=== PATIENT | male | born 1935 | race Caucasian/White ===

== ENCOUNTER 2017-10-17 00:11 | Inpatient (IN) | payer MEDICARE, BC ==
[~2017-10-17] VITALS: Ht 175.3 cm; Wt 101.1 kg
[2017-10-17] VITALS (40 sets, daily range): BP systolic 75–121; BP diastolic 36–96; Ht 175.3 cm; Wt 101.1 kg
--- NOTE | ~2017-10-17 | CN ---
PATIENT NAME:ESTHER DALE MEDICAL RECORD: [id number] : 35 LOCATION:. D.2137 ADMIT DATE: 10/17/17 ACCOUNT: [id number] CONSULTING PHYSICIAN: SHAMAR ALEJANDRO MD REFERRING PHYSICIAN: KARIE KIM MD DATE OF CONSULTATION: 10/17/2017 HISTORY OF PRESENT ILLNESS: Mr. Dale is an 82-year-old male admitted to the ICU. He apparently underwent an I&D of something on the right face a couple days ago as an outpatient and is back in with that. He had a CT of the facial bones as well when he came in. 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 He is alert, oriented. He is able to talk, give a good history, and answer questions. He is on mask O2. He is in no distress. NOSE: No masses, polyps, or drainage. ORAL CAVITY AND OROPHARYNX: He has got upper and lower denture plates. He has no trismus at all. No soreness opening and closing his mouth. I can examine his palate, pharynx, palpate the parapharyngeal areas on both sides, Chris's duct, all of that appears normal. His mucous membranes are dry. NECK: He has no masses, no adenopathy. He has this I&D site on the right posterior cheek really right over the parotid gland in the espinal portion of his face. There is no purulent drainage from there. It is tender to push right on that area at the I&D site, but there is no obvious cellulitis. There is no erythema. The skin is not really thickened. It just looks a little full like maybe mild parotitis, but there are really no overt cellulitis changes. The neck has no masses or adenopathy. DIAGNOSTIC DATA: On his CT, it is a CT of the facial bones not a CT of the neck, so it is hard to evaluate the parotid fully, but I do not see anything particularly remarkable about it. There is fat stranding consistent with cellulitis around the I&D site, which just is right over the parotid gland as well, but there is no abscess. IMPRESSION: He has an I&D site on the right cheek, hard to say what was there, when that was done, but there is no abscess there now and no significant drainage. He has got some minimal cellulitis around it by CT, but his physical exam is not very impressive. His white blood count is only 10. There is no evidence of a dental infection, he does not have any teeth. He does not have any trismus or indication of inflammation of the masseter muscle on exam to palpation or symptomatically. He is just tender over the I&D site. There is some minimal cellulitis. I would not expect it to make him that sick though. He may have another source of infection. This should be something that would respond to IV antibiotics to cover mostly Gram-positive staph, strep, mostly the same kind of things because of parotitis if that was the source or skin infection, although it appears to have been a skin infection based on the fact that it was I&D'd, but I did not see it before that. He is on vancomycin now and hydration, which seems appropriate. TRANSINT:[id number] Voice Confirmation ID: [id number] DOCUMENT ID: [id number] CONSULT REPORT [id number] ESTHER DALE, SHAMAR NAYAK at 1044 CC: [id number] DICTATION DATE: 10/17/17 1128 CQ DEVELOPER: 10/17/17 1156 DIS IN 10/20/17 [id number] [place] [address]
--- NOTE | ~2017-10-17 | EC ---
PATIENT:ESTHER RICHARDSON DATE OF SERVICE: 10/17/17 SEX: M MEDICAL RECORD: [id number] DATE OF : 35 LOCATION:D.M2 D.213 AGE OF PATIENT: 82 ADMISSION DATE: 10/17/17 REFERRING PHYSICIAN: INTERPRETING PHYSICIAN: MULU VILLANUEVA MD ECHOCARDIOGRAM REPORT ECHO CHARGES 4 ECHO COMPLETE CLINICAL DIAGNOSIS: ELEVATED TROPONIN HX OF ICD CAD CABG STENTS ECHOCARDIOGRAPHIC MEASUREMENTS (adult normal given) AC root (d.<3.7cm) 4.3 cm LV Septum d (<1.2 cm> 1.4 cm Valve Excursion 2.1 cm LV Septum (systole) 1.5 cm Left Atria (s.<4.0cm> 3.6 cm LVPW d(<1.2cm) 1.5 cm RV (d.<2.3cm) 3.8 cm LVPW (sytole) 1.7 cm LV diastole(<5.6CM) 4.8 cm MV E-F(>70mm/sec) cm LV systole 3.0 cm LVOT Diameter 2.1 cm MV exc.(>10mm) 1.6 cm Est.ejection fraction (50-75%) % Pericardial Effusion N DOPPLER: LVIT cm/sec A 98.0 cm/sec E 80.0 cm/sec LA cm/sec RVSP 28 mmHg LVOT 85 cm/sec AOP1/2T m/s Asc. Ao 121 cm/sec RVOT 65 cm/sec RA cm/sec PA 109 cm/sec AV Gradient Peak 5.90 mmHg AV Mean 2.65 mmHg AV Area 2.5 cm MV Gradient Peak 7.64 mmHg MV Mean 2.44 mmHg MV Area cm COMMENTS: Injector Assembler: Bo DONIS Cert Occupational Therapy Asst: 1 Dr. Villanueva TAPE# PACS DATE OF SERVICE: 10/18/2017 PROCEDURE: Echocardiogram. FINDINGS: 1. Left ventricular chamber size is within normal limits. Left ventricular systolic function is normal. Overall ejection fraction estimated at 55%. 2. Left atrium, right atrium, and right ventricular chamber sizes are within normal limits. 3. Valvular structures have normal structure and motion. ECHOCARDIOGRAM REPORT [id number] ESTHER RICHARDSON 4. Doppler interrogation reveals mild tricuspid regurgitation, no other valvular insufficiency or stenosis. Pulmonary systolic pressure is estimated 28 mmHg. 5. No evidence of pericardial effusion or left ventricular thrombus. TRANSINT:[id number] Voice Confirmation ID: [id number] DOCUMENT ID: [id number] MULU VILLANUEVA MD at 1202 CC: [id number] DICTATION DATE: 10/18/17 122 MOLDING MACHINE SETTER: 10/18/17 1227 DIS IN 10/20/17 [id number] [place] [address]
--- NOTE | ~2017-10-17 | CN ---
PATIENT NAME:ESTHER RICHARDSON MEDICAL RECORD: [id number] : 35 LOCATION:D. D.2137 ADMIT DATE: 10/17/17 ACCOUNT: [id number] CONSULTING PHYSICIAN: MULU KAISER MD REFERRING PHYSICIAN: KARIE KIM MD DATE OF CONSULTATION: 10/18/2017 Cardiology Consultation DIAGNOSES: 1. Septic shock. 2. Cellulitis. 3. Non-Q-wave myocardial infarction. 4. Coronary artery disease. 5. Previous coronary artery bypass graft surgery. 6. Cardiomyopathy. 7. Defibrillator -- pacemaker. HISTORY OF PRESENT ILLNESS: This is a gentleman with extensive cardiac history with past history of coronary artery bypass graft surgery in 1998, a defibrillator pacemaker followed by Dr. Urban at [facility]. He presents with cellulitis on his right buttocks, cheek. This was felt to be initially from an ingrown hair. He had a lancing procedure, presents with an extensive cellulitis, septic shock, and his troponin is elevated at 4. His EKG is with nonspecific ST-T abnormalities. He is currently pain free. He remains hypotensive on Dopamine. PHYSICAL EXAMINATION: GENERAL APPEARANCE: Well-nourished, well-developed, appears stated age. Level of distress, comfortable. PSYCHIATRIC: Mental status, alert, normal affect. Orientation, oriented to time, place and person. EYES: Lids and conjunctiva, noninjected. No discharge, no pallor. ENT: Lips, teeth, gums, normal dentition. Oropharynx, no cyanosis, no pallor. NECK: Carotid arteries, bilateral normal upstroke, no bruits, no thrills. JUGULAR VEINS: No jugular venous pressure or distention. CERVICAL LYMPH NODES: Nontender, nonenlarged. THYROID: Not enlarged. Nontender. No nodules. LUNGS: Respiratory effort, unlabored. CHEST: Normal curvature. No thoracic deformity. No chest wall tenderness. Percussion, resonant. Auscultation, clear. No wheezes, no rales, no rhonchi. CARDIOVASCULAR: Precordial exam, nondisplaced. No heaves or pericardial thrills. Rate and rhythm, regular. Heart sounds, normal S1, normal S2. No S3, no gallop, no rub. Systolic murmur, not heard. Diastolic murmur, not heard. EXTREMITIES: No cyanosis, no edema. Peripheral pulses, full and equal in all extremities, except as noted. No bruits appreciated. ABDOMEN: Soft, nondistended. Normal aorta. No bruit. Nontender. No masses. Liver, nontender, no hepatomegaly. Spleen, nontender, no splenomegaly. MUSCULOSKELETAL: No joint tenderness. No joint swelling. No erythema. NEUROLOGICAL: Normal gait, normal strength, normal tone. SKIN: Warm and dry. OVERALL IMPRESSION: Non-Q-wave myocardial infarction in a patient with a past history of coronary artery disease, coronary bypass graft surgery in the distant past. Most likely, he has recurrent hemodynamically significant coronary artery CONSULT REPORT [id number] ESTHER RICHARDSON disease and/or graft failure. At this time, we will hold off on cardiac catheterization until he improves from the standpoint of the septic shock. We will proceed with cardiac catheterization prior to discharge from this hospitalization though. TRANSINT:[id number] Voice Confirmation ID: [id number] DOCUMENT ID: [id number] MULU KAISER MD at 1202 CC: [id number] DICTATION DATE: 10/18/17 0839 APPAREL PATTERN MAKER: 10/18/17 0952 DIS IN 10/20/17 [facility] [address] [place] [address]
[~2017-10-17 00:11] MED LIST: ASPIRIN 81 MG E81 MG PO; BUMEX 1 MG TAB1 MG PO; COREG6.25 MG PO; CRESTOR40 MG PO; DIABETA5 MG PO; FISH OIL 1,0001 CA1 PO; GABAPENTIN100 MG PO; GLUCOPHAGE500 MG PO; GLYBURIDE5 M1 PO; LANTUS SOL100 UNIT/1 SQ; LISINOPRIL5 MG PO; LITE COAT ASPI325 MG PO; MUCINEX600 MG PO; MULTIPLE VITAMI1 TA1 PO; NIASPAN500 MG PO; NITROSTAT0.4 MG SL; NORCO 10/325 TA1 TA1; NORCO 10/325 TA1 TA1 PO; PLAVIX75 MG PO; ZANTAC150 MG PO; ZESTRIL10 MG PO
[2017-10-17 01:04] LABS: BASOPHILS 0 % (0-2); EOSINOPHILS 0.4 % (0-7); HEMATOCRIT 39.2 % (42.0-54.0); HEMOGLOBIN 12.8 g/dL (13.5-17.5); IMMATURE GRANULOCYTES 0.2 % (0-5); LYMPHOCYTES 2.5 % (15-50); MCH 28.6 pg (26.0-34.0); MCHC 32.7 g/dL (31.0-37.0); MCV 87.5 fL (80.0-100.0); MEAN PLATELET VOLUME 9.8 fL (7.4-10.4); MONOCYTES 3.4 % (2-11); NEUTROPHILS 93.5 % (40-80); PLATELET COUNT 151 10x3/uL (130-400); RBC 4.48 10x6/uL (4.20-6.10); RDW 13.6 % (11.5-14.5); WBC 9.3 10x3/uL (4.8-10.8)
[2017-10-17 01:19] LABS: ALBUMIN 3.7 g/dL (3.4-5.0); ANION GAP 14.8 mmol/L (8-16); BILIRUBIN - TOTAL 0.71 mg/dL (0.2-1.3); CARBON DIOXIDE 22.3 mmol/L (21.0-32.0); CREATININE - SERUM 1.6 mg/dL (0.6-1.3); POTASSIUM - SERUM 5.1 mmol/L (3.5-5.1); PROTEIN - SERUM 7.5 g/dL (6.4-8.2)
[2017-10-17 02:01] LABS: APPEARANCE CLEAR (CLEAR); COLOR YELLOW (YELLOW); GLUCOSE NEGATIVE (NEGATIVE); KETONE SMALL mg/dL (NEGATIVE); NITRITE NEGATIVE (NEGATIVE); PROTEIN NEGATIVE (NEGATIVE)
[2017-10-17 02:02] LABS: BILIRUBIN NEGATIVE (NEGATIVE); UROBILINOGEN NORMAL (NORMAL)
[2017-10-17 06:31] LABS: CKMB 1.8 U/L (0.0-3.6); CREATINE KINASE 80 UL (21-232)
[2017-10-17 06:35] LABS: BASOPHILS 0 % (0-2); EOSINOPHILS 0.5 % (0-7); IMMATURE GRANULOCYTES 0.2 % (0-5); LYMPHOCYTES 1.8 % (15-50); MCH 27.6 pg (26.0-34.0); MCHC 31.4 g/dL (31.0-37.0); MCV 87.9 fL (80.0-100.0); MEAN PLATELET VOLUME 10.2 fL (7.4-10.4); MONOCYTES 5.6 % (2-11); NEUTROPHILS 91.9 % (40-80); PLATELET COUNT 146 10x3/uL (130-400); RBC 3.98 10x6/uL (4.20-6.10); RDW 13.6 % (11.5-14.5)
[2017-10-17 06:41] LABS: TROPONIN-I 0.304 ng/mL (0.000-0.060)
[2017-10-17 06:50] LABS: ANION GAP 17.8 mmol/L (8-16); CARBON DIOXIDE 19.7 mmol/L (21.0-32.0); MAGNESIUM - SERUM 1.3 mg/dL (1.8-2.4)
[2017-10-17 06:52] LABS: CREATININE - SERUM 2.1 mg/dL (0.6-1.3)
[2017-10-17 06:54] LABS: POTASSIUM - SERUM 6.5 mmol/L (3.5-5.1)
[2017-10-17 13:58] LABS: CKMB 7.4 U/L (0.0-3.6)
[2017-10-17 13:59] LABS: CREATINE KINASE 412 UL (21-232); TROPONIN-I 1.495 ng/mL (0.000-0.060)
[2017-10-17 20:02] LABS: CKMB 10.1 U/L (0.0-3.6)
[2017-10-17 20:05] LABS: CREATINE KINASE 610 UL (21-232)
[2017-10-17 20:06] LABS: TROPONIN-I 4.055 ng/mL (0.000-0.060)
[2017-10-18] VITALS (37 sets, daily range): BP systolic 81–133; BP diastolic 46–86
[2017-10-18 05:02] LABS: BASOPHILS 0 % (0-2); EOSINOPHILS 1.8 % (0-7); HEMATOCRIT 30.7 % (42.0-54.0); HEMOGLOBIN 9.9 g/dL (13.5-17.5); IMMATURE GRANULOCYTES 0.4 % (0-5); MCH 27.7 pg (26.0-34.0); MCHC 32.2 g/dL (31.0-37.0); MEAN PLATELET VOLUME 9.8 fL (7.4-10.4); MONOCYTES 6.7 % (2-11); NEUTROPHILS 87.1 % (40-80); RBC 3.58 10x6/uL (4.20-6.10); RDW 13.6 % (11.5-14.5); WBC 10.7 10x3/uL (4.8-10.8)
[2017-10-18 05:05] LABS: MCV 85.8 fL (80.0-100.0); PLATELET COUNT 114 10x3/uL (130-400)
[2017-10-18 05:11] LABS: ANION GAP 13.7 mmol/L (8-16); CALCIUM 7.1 mg/dL (8.5-10.1); CARBON DIOXIDE 24.2 mmol/L (21.0-32.0); CREATININE - SERUM 2.5 mg/dL (0.6-1.3)
[2017-10-18 05:16] LABS: POTASSIUM - SERUM 4.9 mmol/L (3.5-5.1)
[2017-10-19] VITALS: BP 118/69
[2017-10-19 05:23] VITALS: BP 116/58
[2017-10-19 07:33] LABS: BASOPHILS 0 % (0-2); EOSINOPHILS 6.2 % (0-7); HEMATOCRIT 31.7 % (42.0-54.0); HEMOGLOBIN 10.1 g/dL (13.5-17.5); IMMATURE GRANULOCYTES 0.3 % (0-5); MCH 27.2 pg (26.0-34.0); MCHC 31.9 g/dL (31.0-37.0); MCV 85.4 fL (80.0-100.0); MEAN PLATELET VOLUME 9.9 fL (7.4-10.4); NEUTROPHILS 79.5 % (40-80); PLATELET COUNT 101 10x3/uL (130-400); RBC 3.71 10x6/uL (4.20-6.10); RDW 13.6 % (11.5-14.5); WBC 8.7 10x3/uL (4.8-10.8)
[2017-10-19 07:41] LABS: CALCIUM 7.3 mg/dL (8.5-10.1); CARBON DIOXIDE 22.3 mmol/L (21.0-32.0); POTASSIUM - SERUM 4.3 mmol/L (3.5-5.1)
[2017-10-19 07:44] LABS: CREATININE - SERUM 1.8 mg/dL (0.6-1.3)
[2017-10-19 07:54] VITALS: BP 138/72
[2017-10-19 11:42] VITALS: BP 126/74
[2017-10-19 16:20] VITALS: BP 133/78
[2017-10-19 19:00] VITALS: BP 131/76
[2017-10-20 04:00] VITALS: BP 148/68
[2017-10-20 06:43] LABS: BASOPHILS 0.1 % (0-2); HEMATOCRIT 31.2 % (42.0-54.0); HEMOGLOBIN 10.2 g/dL (13.5-17.5); IMMATURE GRANULOCYTES 0.1 % (0-5); LYMPHOCYTES 16.3 % (15-50); MCH 27.8 pg (26.0-34.0); MCHC 32.7 g/dL (31.0-37.0); MONOCYTES 7.3 % (2-11); NEUTROPHILS 70.2 % (40-80); PLATELET COUNT 113 10x3/uL (130-400); RBC 3.67 10x6/uL (4.20-6.10); RDW 13.4 % (11.5-14.5); WBC 6.9 10x3/uL (4.8-10.8)
[2017-10-20 06:55] LABS: ANION GAP 13.2 mmol/L (8-16); CALCIUM 8.4 mg/dL (8.5-10.1); CARBON DIOXIDE 23.9 mmol/L (21.0-32.0); CREATININE - SERUM 1.5 mg/dL (0.6-1.3); MAGNESIUM - SERUM 1.3 mg/dL (1.8-2.4); POTASSIUM - SERUM 4.1 mmol/L (3.5-5.1); VANCOMYCIN - RANDOM 9.5 ug/mL (10.0-20.0)
[2017-10-20 09:23] VITALS: BP 138/62
[2017-10-20] MEDS ORDERED: DOXYCYCLINE HY100 M2 PO (10:14)
[2017-10-20] MEDS ORDERED: PLAVIX75 MG PO (10:16)
[2017-10-20] MEDS ORDERED: CRESTOR10 MG PO (10:16)
[2017-10-20 11:30] VITALS: BP 133/71
[2017-10-20 17:47] VITALS: BP 124/72
== END 2017-10-20 18:27 | DRG 871 ==
LOC: D.ER 00:11 → D.EDHOLD 02:57 → D.ICU 02:57 → D.M2 02:57 → D.EDHOLD 06:54 → D.ICU 08:41 → D.M2 10-18 23:01 → D.SDCHOLD 10-19 14:06 → D.M2 10-19 14:06
PROVIDERS: Family Medicine; Internal Medicine Nephrology
PROC: 02HV33Z Insertion of Infusion Device into Superior Vena Cava, Percutaneous Approach (ICD-10-PCS; principal; 2017-10-18)
PROC: B548ZZA Ultrasonography of Superior Vena Cava, Guidance (ICD-10-PCS; 2017-10-18)
DX: A41.9 Sepsis, unspecified organism (principal); R65.21 Severe sepsis with septic shock; I21.4 Non-ST elevation (NSTEMI) myocardial infarction; L03.211 Cellulitis of face; N17.9 Acute kidney failure, unspecified; I42.9 Cardiomyopathy, unspecified; M60.9 Myositis, unspecified; I25.10 Atherosclerotic heart disease of native coronary artery without angina pectoris; E87.5 Hyperkalemia; Z95.810 Presence of automatic (implantable) cardiac defibrillator; E83.42 Hypomagnesemia; E11.40 Type 2 diabetes mellitus with diabetic neuropathy, unspecified; E86.0 Dehydration; Z95.1 Presence of aortocoronary bypass graft

== ENCOUNTER 2017-10-20 16:37 | Inpatient (IN) | payer MEDICARE, BC ==
[~2017-10-20] VITALS: Ht 175.3 cm; Wt 95.3 kg
--- NOTE | ~2017-10-20 | DS ---
PATIENT:ESTHER RICHARDSON :35 MEDICAL RECORD: [id number] DISCHARGE SUMMARY ADMISSION DATE: 10/20/17 DISCHARGE DATE: 10/27/17 This is a discharge dated 10/27/2017 from inpatient rehabilitation. 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 SECONDARY DIAGNOSES: 1. Right facial cellulitis. 2. Non-Q-wave myocardial infarction. 3. Coronary artery disease. 4. Hyperkalemia. 5. Hypomagnesemia. 6. Diabetes. 7. Neuropathy. 8. History of pacemaker placement. 9. Hypertension. 10. Hyperlipidemia. 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 HOSPITAL COURSE: Full H&P is located elsewhere on the chart on this 82-year-old male who was admitted to inpatient rehab for physical therapy and occupational therapy to improve gait, transfer skills, bed mobility, and activities of daily living to a modified independent level. He was evaluated by PT and OT and their plans of care were followed. He required detention care for observation and assessment and medication administration. He was on doxycycline for right facial cellulitis and was started on Nystatin for a possible thrush. Electrolytes were managed by protocol. Fingerstick blood sugars were monitored throughout his hospital stay with appropriate adjustment in medications as needed. He was cooperative with therapies, progressing towards goals. Case management was involved for discharge planning. He was considered stable for discharge on 10/27/2017. DISCHARGE MEDICATIONS: As per discharge medication reconciliation. DISCHARGE DISPOSITION: The patient is discharged home. He will continue his current diet and level of activity. He will have home health for continued detention, PT and OT. He will be followed by [facility]. He will follow up with primary care and specialist as directed. At least 30 minutes was spent in this discharge activity. TRANSINT:[id number] Voice Confirmation ID: [id number] DOCUMENT ID: [id number] Dictated By: JOSE GRIMM I have interviewed/examined the above patient and agree with these documented findings. DISCHARGE SUMMARY REPORT [id number] ESTHER RICHARDSON SCOTT MD at 1157 at 0940 CC: [id number] DICTATION DATE: 12/10/17 1259 RADIOGRAPHER TECHNOLOGIST: 12/11/17 0957 DIS IN 10/27/17 [facility] [address] [place] [address]
[~2017-10-20 16:37] MED LIST changes: +CRESTOR10 MG PO; +DOXYCYCLINE HY100 M2 PO
[2017-10-20 22:09] VITALS: BP 144/68; BMI 31.0
[2017-10-21 06:12] LABS: BASOPHILS 0.1 % (0-2); EOSINOPHILS 3.2 % (0-7); HEMATOCRIT 32.6 % (42.0-54.0); HEMOGLOBIN 10.7 g/dL (13.5-17.5); IMMATURE GRANULOCYTES 0.3 % (0-5); LYMPHOCYTES 22.7 % (15-50); MCH 27.8 pg (26.0-34.0); MCHC 32.8 g/dL (31.0-37.0); MCV 84.7 fL (80.0-100.0); MEAN PLATELET VOLUME 9.5 fL (7.4-10.4); NEUTROPHILS 65.7 % (40-80); PLATELET COUNT 116 10x3/uL (130-400); RBC 3.85 10x6/uL (4.20-6.10); RDW 13.7 % (11.5-14.5); WBC 7.4 10x3/uL (4.8-10.8)
[2017-10-21 06:29] LABS: ANION GAP 14.1 mmol/L (8-16); CALCIUM 8.5 mg/dL (8.5-10.1); CREATININE - SERUM 1.3 mg/dL (0.6-1.3); POTASSIUM - SERUM 4.1 mmol/L (3.5-5.1)
[2017-10-21 08:55] VITALS: BP 134/73
[2017-10-21 13:20] VITALS: Ht 175.3 cm; Wt 95.3 kg
[2017-10-21 19:25] VITALS: BP 115/60
[2017-10-22 09:36] VITALS: BP 130/70
[2017-10-22 19:10] VITALS: BP 120/55
[2017-10-23 06:53] LABS: BASOPHILS 0.1 % (0-2); HEMATOCRIT 31.7 % (42.0-54.0); HEMOGLOBIN 10.6 g/dL (13.5-17.5); IMMATURE GRANULOCYTES 0.5 % (0-5); LYMPHOCYTES 15.4 % (15-50); MCHC 33.4 g/dL (31.0-37.0); MCV 83.9 fL (80.0-100.0); MEAN PLATELET VOLUME 9.6 fL (7.4-10.4); MONOCYTES 8.9 % (2-11); NEUTROPHILS 73.1 % (40-80); RBC 3.78 10x6/uL (4.20-6.10); RDW 13.6 % (11.5-14.5); WBC 11.8 10x3/uL (4.8-10.8)
[2017-10-23 07:01] LABS: PLATELET COUNT 147 10x3/uL (130-400)
[2017-10-23 07:15] LABS: ANION GAP 11.4 mmol/L (8-16); CALCIUM 8.9 mg/dL (8.5-10.1); CARBON DIOXIDE 27.2 mmol/L (21.0-32.0); CREATININE - SERUM 1.2 mg/dL (0.6-1.3); POTASSIUM - SERUM 3.6 mmol/L (3.5-5.1)
[2017-10-23 07:52] VITALS: BP 131/69
[2017-10-23 15:51] VITALS: BP 144/76
[2017-10-23 22:04] VITALS: BP 140/68
[2017-10-24 16:14] VITALS: BP 118/63
[2017-10-24 18:52] VITALS: BP 104/49
[2017-10-25 07:39] LABS: BASOPHILS 0.3 % (0-2); EOSINOPHILS 1.4 % (0-7); HEMOGLOBIN 10.6 g/dL (13.5-17.5); IMMATURE GRANULOCYTES 0.9 % (0-5); LYMPHOCYTES 17.7 % (15-50); MCH 27.3 pg (26.0-34.0); MCHC 32.1 g/dL (31.0-37.0); MCV 85.1 fL (80.0-100.0); MEAN PLATELET VOLUME 9.2 fL (7.4-10.4); NEUTROPHILS 68.7 % (40-80); RBC 3.88 10x6/uL (4.20-6.10); RDW 13.8 % (11.5-14.5); WBC 7.9 10x3/uL (4.8-10.8)
[2017-10-25 07:42] LABS: PLATELET COUNT 197 10x3/uL (130-400)
[2017-10-25 07:47] LABS: ANION GAP 12.6 mmol/L (8-16); CALCIUM 8.6 mg/dL (8.5-10.1); CARBON DIOXIDE 26.8 mmol/L (21.0-32.0); CREATININE - SERUM 1.3 mg/dL (0.6-1.3); POTASSIUM - SERUM 3.4 mmol/L (3.5-5.1)
[2017-10-25 08:09] VITALS: BP 92/50
[2017-10-25 20:19] VITALS: BP 107/50
[2017-10-26 07:46] VITALS: BP 108/56
[2017-10-26] MEDS ORDERED: MELATONIN 3 MG1 TAB PO (18:39)
[2017-10-26] MEDS ORDERED: GABAPENTIN100 MG PO (18:39)
[2017-10-26 20:06] VITALS: BP 116/49
[2017-10-27 08:04] VITALS: BP 119/64
== END 2017-10-27 10:51 | disposition short-term general hospital (02) | DRG 91 ==
LOC: D.REHAB 16:37
PROVIDERS: Emergency Medicine; Family Medicine
DX: G72.89 Other specified myopathies (principal); A41.9 Sepsis, unspecified organism; R65.21 Severe sepsis with septic shock; I21.4 Non-ST elevation (NSTEMI) myocardial infarction; J90 Pleural effusion, not elsewhere classified; L03.211 Cellulitis of face; N17.9 Acute kidney failure, unspecified; I42.9 Cardiomyopathy, unspecified; E11.65 Type 2 diabetes mellitus with hyperglycemia; I25.10 Atherosclerotic heart disease of native coronary artery without angina pectoris; Z95.1 Presence of aortocoronary bypass graft; D64.9 Anemia, unspecified; E87.5 Hyperkalemia; E83.42 Hypomagnesemia

== ENCOUNTER 2017-10-27 20:29 | Inpatient (IN) | payer MEDICARE, BC ==
[~2017-10-27] VITALS: Ht 175.3 cm; Wt 96.5 kg
--- NOTE | ~2017-10-27 | EC ---
PATIENT:ESTHER RICHARDSON DATE OF SERVICE: 10/27/17 SEX: M MEDICAL RECORD: [id number] DATE OF : 35 LOCATION:D.MS Olsen AGE OF PATIENT: 82 ADMISSION DATE: 10/27/17 REFERRING PHYSICIAN: INTERPRETING PHYSICIAN: EMILY CALLES MD ECHOCARDIOGRAM REPORT ECHO CHARGES 5 ECHO LIMITED Date: 1 DOPPLER ECHO COLOR FLOW 2 DOPPLER ECHO PULSE CLINICAL DIAGNOSIS: ELEVATED CARDIAC ENZYMES ECHOCARDIOGRAPHIC MEASUREMENTS (adult normal given) AC root (d.<3.7cm) 0 cm LV Septum d (<1.2 cm> 0 cm Valve Excursion 0 cm LV Septum (systole) 0 cm Left Atria (s.<4.0cm> 0 cm LVPW d(<1.2cm) 0 cm RV (d.<2.3cm) 0 cm LVPW (sytole) 0 cm LV diastole(<5.6CM) 0 cm MV E-F(>70mm/sec) 0 cm LV systole 0 cm LVOT Diameter 0 cm MV exc.(>10mm) 0 cm Est.ejection fraction (50-75%) 0 % DOPPLER: LVIT 0 cm/sec A 0 cm/sec E 0 cm/sec LA 0 cm/sec RVSP 21.3 mmHg LVOT 0 cm/sec AOP1/2T 0 m/s Asc. Ao 0 cm/sec RVOT 0 cm/sec RA 0 cm/sec PA 0 cm/sec AV Gradient Peak 0 mmHg AV Mean 0 mmHg AV Area 0 cm MV Gradient Peak 0 mmHg MV Mean 0 mmHg MV Area 0 cm COMMENTS: LIMITED STUDY (2-D,COLOR,DOPPLER) COMPLETE ECHO DONE ON 10/18/17 Snow Blower: 1 J LUIS BLOUNT Regional Trainer: 4 Dr. Calles TAPE# PACS Pericardial Effusion N DATE OF SERVICE: PROCEDURE: Limited echocardiogram with 2D color and Doppler to determine any change in function. FINDINGS: The left ventricle was difficult to visualize. There appears to be anterior septal hypokinesis with posterior and inferior hyperkinetic segments. Overall ejection fraction is reduced to 45% to 50%. This was a difficult to visualize study. Contrast enhancement may have been helpful. There are no gross valvular changes. ECHOCARDIOGRAM REPORT [id number] ESTHER RICHARDSON CONCLUSIONS: The patient has mild reduction in LV systolic function. Ejection fraction 45% to 50%. TRANSINT:[id number] Voice Confirmation ID: [id number] DOCUMENT ID: [id number] EMILY CALLES MD at 1426 CC: [id number] DICTATION DATE: 11/14/17 0946 API PRODUCT MANAGER: 11/14/17 1252 DIS IN 11/04/17 [id number] [place] [address]
--- NOTE | ~2017-10-27 | OP ---
PATIENT NAME: ESTHER RICHARDSON MEDICAL RECORD: [id number] :35 LOCATION:D.MS [id number] ADMISSION DATE:10/27/17 SURGEON: JAMEEL PHILLIPS MD DATE OF OPERATION: 10/28/2017 PREOPERATIVE DIAGNOSES: 1. Need of IV access for CVPs. 2. Urinary tract infection with septicemia. 3. Elevated liver function tests. POSTOPERATIVE DIAGNOSES: 1. Need of IV access for CVPs. 2. Urinary tract infection with septicemia. 3. Elevated liver function tests. PROCEDURE: Insertion of right internal jugular triple lumen central venous catheter. SURGEON: Jameel Phillips MD LIQUID CHLORINE OPERATOR: None. BLOOD LOSS: Minimal. ANESTHESIA: Local. COMPLICATIONS: None. The risks, possible complications and alternatives to the procedure were explained to the patient. He elects to proceed. The entire procedure was performed with the presence of a nurse. OPERATIVE COURSE: The patient was seen in his ICU bed. He was positioned in the Trendelenburg position. The right neck was sterilely prepped and draped. Local anesthetic was used to infiltrate the skin and subcutaneous tissues at the base of the right neck. Under ultrasonographic guidance, I percutaneously accessed the right internal jugular vein. A guidewire passed easily. A small skin mariel was accomplished. A vessel dilator was used to dilate the subcutaneous tract. A 16-cm triple lumen central venous catheter was inserted to the hub. It was sutured in place times 3. All lumens flushed easily and aspirated dark, nonpulsatile blood. A stat portable chest x-ray is pending. TRANSINT:[id number] Voice Confirmation ID: [id number] DOCUMENT ID: [id number] OPERATIVE REPORT [id number] ESTHER RICHARDSON ROBERT MD at 1042 CC: [id number] DICTATION DATE: 10/28/17 1459 BOOM PUMP OPERATOR: 10/28/17 1521 [place] [address]
--- NOTE | ~2017-10-27 | CN ---
PATIENT NAME:ESTHER DALE MEDICAL RECORD: [id number] : 35 LOCATION:D.MS Olsen5 ADMIT DATE: 10/27/17 ACCOUNT: [id number] CONSULTING PHYSICIAN: TOMÁS BELLO MD REFERRING PHYSICIAN: MARK WILLIS MD DATE OF CONSULTATION: 10/29/2017 CONSULT REQUESTING PHYSICIAN: Mark Willis MD REASON FOR CONSULTATION: Septic shock, leukocytosis, acute renal failure, elevated liver enzymes. HISTORY OF PRESENT ILLNESS: Mr. Dale is an 82-year-old gentleman who was admitted in the first week of October with sepsis and non-Q myocardial infarction. The patient was discharged from the rehab and yesterday, the patient has rigors, fever, and chills. The patient came back to the ER, found out that the patient has significant leukocytosis and the patient was hypotensive. Now, the patient is in the ICU. He is awake and alert. Denies any chest pain. No abdominal pain. There are no associated nausea or vomiting. He is just not feeling well. REVIEW OF SYSTEMS: Mainly in the history of present illness. PAST MEDICAL HISTORY: 1. Type 2 diabetes mellitus. 2. Hyperlipidemia. 3. History of septic shock and sepsis. 4. Coronary artery disease, status post non-Q myocardial infarction. 5. Cardiomyopathy. 6. History of melanoma, left ear removed, allergy and sinus allergic rhinitis. 7. Neuropathy in the feet. PAST SURGICAL HISTORY: 1. Status post CABG in 1998. 2. Status post defibrillator placement. 3. Status post pacemaker placement. 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 5. Cardiac catheterization and stent placement. 6. Left knee arthroscopic surgery. ALLERGIES: There are no known drug allergies. PRESENT MEDICATIONS: He is on Rocephin and Levaquin. PERSONAL AND SOCIAL HISTORY: The patient is a nonsmoker, nondrinker. FAMILY HISTORY: Significant for cardiovascular disease and diabetes. PHYSICAL EXAMINATION: GENERAL: Now, the patient is lying comfortably in bed. He is not in acute distress. VITAL SIGNS: The blood pressure is 89-118/61, pulse is 94 to 103, temperature 100.6, SPO2 is 96% on 2 liter nasal cannula. HEENT: Conjunctivae is pink, sclerae nonicteric. NECK: Supple. No JVD. CONSULT REPORT [id number] ESTHER DALE CHEST: There is no wheeze, no rales. HEART: Rhythm regular, normal sound, no murmur. ABDOMEN: Soft, bowel sounds present. No hepatosplenomegaly. RECTAL: Deferred. EXTREMITIES: No cyanosis, no clubbing. There is 1+ pedal edema. CENTRAL NERVOUS SYSTEM: The patient is awake and alert. There is no obvious cranial nerve abnormality. The patient follow commands. LABORATORY DATA: CBC: The WBC is 22.8, hemoglobin 11.2, hematocrit 35.4, the platelet count is 212. The neutrophils is 96%. Chemistry; sodium 140, potassium 4.3, chloride 105, bicarbonate is 20.7, BUN is 43, creatinine 2.6, AST 102, alkaline phosphatase 173. ProBNP is 951. Albumin is 2.3. IMPRESSION: 1. Systemic inflammatory response syndrome type of syndrome. A. Leukocytosis. B. Fever. C. Hypotension and septic shock. 2. Lactic acidosis. 3. Possible urinary tract infection. 4. Ndqds-ho-kvxpawl renal failure. 5. Leukocytosis. 6. Hepatitis. 7. Coronary artery disease. 8. Congestive heart failure, cardiomyopathy, status post defibrillator placement. He was seen by Dr. Villanueva in the past. RECOMMENDATION: 1. I will adjust the dose of Levaquin to renal function and discontinue the Rocephin and start cefepime and vancomycin to cover for Gram-negative rods as well as MRSA. 2. Continue Levophed IV to keep the systolic blood pressure above 90. 3. Get the central line, keep the CVP 10-12. 4. Nephrology consulted. 5. Check the cardiac enzymes, if elevated we will consult cardiology. 6. Supplemental oxygen is required. 7. Follow up labs and chest radiograph in the morning. Dr. Willis, thank you for involving me in the care of Mr. Dale. The critical care time is 45 minutes. TRANSINT:[id number] Voice Confirmation ID: [id number] DOCUMENT ID: [id number] TOMÁS BELLO MD at 1410 CC: [id number] DICTATION DATE: 10/28/17 1009 WELL DRILL OPERATOR ROTARY DRILL: 10/28/17 1106 DIS IN 11/04/17 [place] [address]
[~2017-10-27 20:29] MED LIST changes: +MELATONIN 3 MG1 TAB PO
[2017-10-27 21:48] LABS: BASOPHILS 0.1 % (0-2); EOSINOPHILS 0.2 % (0-7); HEMATOCRIT 35.7 % (42.0-54.0); HEMOGLOBIN 11.6 g/dL (13.5-17.5); IMMATURE GRANULOCYTES 0.6 % (0-5); LYMPHOCYTES 1.6 % (15-50); MCHC 32.5 g/dL (31.0-37.0); MCV 86.2 fL (80.0-100.0); MEAN PLATELET VOLUME 9.8 fL (7.4-10.4); MONOCYTES 0.8 % (2-11); NEUTROPHILS 96.7 % (40-80); PLATELET COUNT 209 10x3/uL (130-400); RBC 4.14 10x6/uL (4.20-6.10); RDW 13.9 % (11.5-14.5); WBC 13.2 10x3/uL (4.8-10.8)
[2017-10-27 21:55] LABS: APPEARANCE CLEAR (CLEAR); BACTERIA MODERATE /hpf (NONE SEEN); BILIRUBIN NEGATIVE (NEGATIVE); COLOR YELLOW (YELLOW); GLUCOSE NEGATIVE (NEGATIVE); KETONE NEGATIVE (NEGATIVE); NITRITE NEGATIVE (NEGATIVE); PROTEIN NEGATIVE (NEGATIVE); SPECIFIC GRAVITY 1.015 (1.005-1.020); UROBILINOGEN NORMAL (NORMAL)
[2017-10-27 21:57] LABS: ALBUMIN 2.7 g/dL (3.4-5.0); ANION GAP 20.7 mmol/L (8-16); BILIRUBIN - TOTAL 0.74 mg/dL (0.2-1.3); CALCIUM 8.3 mg/dL (8.5-10.1); CARBON DIOXIDE 20.6 mmol/L (21.0-32.0); POTASSIUM - SERUM 4.3 mmol/L (3.5-5.1); PROTEIN - SERUM 6.2 g/dL (6.4-8.2)
[2017-10-27 22:06] LABS: MAGNESIUM - SERUM 1.2 mg/dL (1.8-2.4)
[2017-10-28] VITALS (93 sets, daily range): BP systolic 73–168; BP diastolic 31–145; BMI 31.4
[2017-10-28 03:16] LABS: HEMATOCRIT 35.4 % (42.0-54.0); HEMOGLOBIN 11.2 g/dL (13.5-17.5); MCH 27.5 pg (26.0-34.0); MCHC 31.6 g/dL (31.0-37.0); MEAN PLATELET VOLUME 9.4 fL (7.4-10.4); PLATELET COUNT 212 10x3/uL (130-400); RBC 4.07 10x6/uL (4.20-6.10); WBC 22.8 10x3/uL (4.8-10.8)
[2017-10-28 03:39] LABS: ALBUMIN 2.3 g/dL (3.4-5.0); ANION GAP 18.6 mmol/L (8-16); BILIRUBIN - TOTAL 0.49 mg/dL (0.2-1.3); CARBON DIOXIDE 20.7 mmol/L (21.0-32.0); POTASSIUM - SERUM 4.3 mmol/L (3.5-5.1); PROTEIN - SERUM 5.8 g/dL (6.4-8.2)
[2017-10-28 03:41] LABS: EOSINOPHILS 1 % (0-7); LYMPHOCYTES 2 % (15-50); MONOCYTES 3 % (2-11); NEUTROPHILS 89 % (40-80); PLATELET ESTIMATE NORMAL
[2017-10-28 03:42] LABS: CREATININE - SERUM 2.6 mg/dL (0.6-1.3)
[2017-10-28 10:42] LABS: CREATINE KINASE 584 UL (21-232)
[2017-10-28 10:51] LABS: TROPONIN-I 0.169 ng/mL (0.000-0.060)
[2017-10-28 15:45] LABS: ERYTHROCYTE SEDIMENTATION RATE 31 mm/hr (0-20)
[2017-10-28 22:07] LABS: APPEARANCE CLEAR (CLEAR); BILIRUBIN NEGATIVE (NEGATIVE); COLOR YELLOW (YELLOW); GLUCOSE NEGATIVE (NEGATIVE); KETONE NEGATIVE (NEGATIVE); NITRITE NEGATIVE (NEGATIVE); PROTEIN TRACE mg/dL (NEGATIVE); UROBILINOGEN NORMAL (NORMAL)
[2017-10-28 22:08] LABS: CREATININE - URINE 87.3 mg/dL (30-125); PRO/CRE RATIO URINE 0.5 mg/g; PROTEIN - URINE 39.9 mg/dL (0.0-11.9)
[2017-10-28 22:09] LABS: BACTERIA FEW /hpf (NONE SEEN); RED CELLS - URINE 25-50 /hpf (0-5)
[2017-10-29] VITALS (96 sets, daily range): BP systolic 78–148; BP diastolic 33–105; Ht 175.3 cm; Wt 96.5 kg
[2017-10-29 03:37] LABS: BASOPHILS 0.1 % (0-2); EOSINOPHILS 2.2 % (0-7); HEMATOCRIT 31.7 % (42.0-54.0); HEMOGLOBIN 10.1 g/dL (13.5-17.5); IMMATURE GRANULOCYTES 0.4 % (0-5); LYMPHOCYTES 8.7 % (15-50); MCH 27.4 pg (26.0-34.0); MCHC 31.9 g/dL (31.0-37.0); MCV 86.1 fL (80.0-100.0); MEAN PLATELET VOLUME 10.1 fL (7.4-10.4); MONOCYTES 5.1 % (2-11); NEUTROPHILS 83.5 % (40-80); PLATELET COUNT 181 10x3/uL (130-400); RBC 3.68 10x6/uL (4.20-6.10); RDW 14.2 % (11.5-14.5); WBC 19.2 10x3/uL (4.8-10.8)
[2017-10-29 03:56] LABS: ALBUMIN 2.1 g/dL (3.4-5.0); ANION GAP 12.2 mmol/L (8-16); BILIRUBIN - TOTAL 0.76 mg/dL (0.2-1.3); CARBON DIOXIDE 23.4 mmol/L (21.0-32.0); CREATININE - SERUM 2.3 mg/dL (0.6-1.3); MAGNESIUM - SERUM 1.3 mg/dL (1.8-2.4); POTASSIUM - SERUM 4.6 mmol/L (3.5-5.1); PROTEIN - SERUM 5.1 g/dL (6.4-8.2); VANCOMYCIN - RANDOM 5.3 ug/mL (10.0-20.0)
[2017-10-30] VITALS (37 sets, daily range): BP systolic 85–136; BP diastolic 50–88
[2017-10-30 04:03] LABS: BASOPHILS 0.1 % (0-2); EOSINOPHILS 5.6 % (0-7); HEMATOCRIT 30.9 % (42.0-54.0); HEMOGLOBIN 9.9 g/dL (13.5-17.5); IMMATURE GRANULOCYTES 0.2 % (0-5); LYMPHOCYTES 19.5 % (15-50); MCH 27.2 pg (26.0-34.0); MCV 84.9 fL (80.0-100.0); MEAN PLATELET VOLUME 9.7 fL (7.4-10.4); MONOCYTES 6.2 % (2-11); NEUTROPHILS 68.4 % (40-80); PLATELET COUNT 170 10x3/uL (130-400); RBC 3.64 10x6/uL (4.20-6.10); RDW 14.1 % (11.5-14.5)
[2017-10-30 04:10] LABS: WBC 8.3 10x3/uL (4.8-10.8)
[2017-10-30 04:29] LABS: ALBUMIN 2.1 g/dL (3.4-5.0); ANION GAP 9.2 mmol/L (8-16); BILIRUBIN - TOTAL 0.71 mg/dL (0.2-1.3); CALCIUM 7.4 mg/dL (8.5-10.1); CARBON DIOXIDE 27.1 mmol/L (21.0-32.0); POTASSIUM - SERUM 4.3 mmol/L (3.5-5.1); PROTEIN - SERUM 5.4 g/dL (6.4-8.2); VANCOMYCIN - TROUGH 2.7 ug/mL (10.0-20.0)
[2017-10-30 04:40] LABS: CREATININE - SERUM 1.7 mg/dL (0.6-1.3); MAGNESIUM - SERUM 1.7 mg/dL (1.8-2.4)
[2017-10-31] VITALS (18 sets, daily range): BP systolic 90–145; BP diastolic 32–112
[2017-10-31 03:47] LABS: BASOPHILS 0.1 % (0-2); EOSINOPHILS 3.5 % (0-7); HEMATOCRIT 30.1 % (42.0-54.0); HEMOGLOBIN 9.8 g/dL (13.5-17.5); IMMATURE GRANULOCYTES 0.2 % (0-5); LYMPHOCYTES 16.5 % (15-50); MCH 27.5 pg (26.0-34.0); MCHC 32.6 g/dL (31.0-37.0); MCV 84.6 fL (80.0-100.0); MEAN PLATELET VOLUME 9.4 fL (7.4-10.4); MONOCYTES 5.6 % (2-11); NEUTROPHILS 74.1 % (40-80); PLATELET COUNT 159 10x3/uL (130-400); RBC 3.56 10x6/uL (4.20-6.10); RDW 13.9 % (11.5-14.5)
[2017-10-31 04:00] LABS: ALBUMIN 2.1 g/dL (3.4-5.0); ANION GAP 13.6 mmol/L (8-16); BILIRUBIN - TOTAL 0.57 mg/dL (0.2-1.3); CALCIUM 7.4 mg/dL (8.5-10.1); CARBON DIOXIDE 24.7 mmol/L (21.0-32.0); CREATININE - SERUM 1.2 mg/dL (0.6-1.3); MAGNESIUM - SERUM 1.9 mg/dL (1.8-2.4); POTASSIUM - SERUM 4.3 mmol/L (3.5-5.1); PROTEIN - SERUM 5.2 g/dL (6.4-8.2)
[2017-11-01 04:00] VITALS: BP 91/52
[2017-11-01 06:27] LABS: BASOPHILS 0.2 % (0-2); HEMATOCRIT 28.2 % (42.0-54.0); IMMATURE GRANULOCYTES 0.3 % (0-5); LYMPHOCYTES 26.8 % (15-50); MCH 27.1 pg (26.0-34.0); MCHC 31.9 g/dL (31.0-37.0); MCV 84.9 fL (80.0-100.0); MEAN PLATELET VOLUME 9.9 fL (7.4-10.4); NEUTROPHILS 61.7 % (40-80); PLATELET COUNT 156 10x3/uL (130-400); RBC 3.32 10x6/uL (4.20-6.10); RDW 13.9 % (11.5-14.5); WBC 6.3 10x3/uL (4.8-10.8)
[2017-11-01 06:46] LABS: ANION GAP 13.1 mmol/L (8-16); BILIRUBIN - TOTAL 0.69 mg/dL (0.2-1.3); CALCIUM 7.5 mg/dL (8.5-10.1); CARBON DIOXIDE 24.3 mmol/L (21.0-32.0); CREATININE - SERUM 1.1 mg/dL (0.6-1.3); MAGNESIUM - SERUM 1.5 mg/dL (1.8-2.4); POTASSIUM - SERUM 4.4 mmol/L (3.5-5.1)
[2017-11-01 07:25] LABS: SPE - ALBUMIN 2.6 g/dL (2.9-4.4); SPE - ALPHA-1 GLOBULIN 0.2 g/dL (0.0-0.4); SPE - ALPHA-2 GLOBULIN 1.1 g/dL (0.4-1.0); SPE - BETA GLOBULIN 0.8 g/dL (0.7-1.3); SPE - GAMMA GLOBULIN 0.7 g/dL (0.4-1.8); SPE - M-SPIKE Not Observed g/dL (Not Observed); SPE - TOTAL PROTEIN 5.3 g/dL (6.0-8.5)
[2017-11-01 08:06] VITALS: BP 103/52
[2017-11-01 10:17] LABS: UPE RAND - ALBUMIN 29.6 % (()); UPE RAND - ALPHA 2 GLOBULIN 16.1 % (()); UPE RAND - BETA GLOBULIN 27.1 % (()); UPE RAND - GAMMA GLOBULIN 17.2 % (())
[2017-11-01 11:42] VITALS: BP 117/62
[2017-11-01 16:27] VITALS: BP 128/56
[2017-11-01 20:00] VITALS: BP 98/50
[2017-11-02 04:00] VITALS: BP 103/50
[2017-11-02 05:04] LABS: BASOPHILS 0 % (0-2); HEMATOCRIT 28.1 % (42.0-54.0); HEMOGLOBIN 8.9 g/dL (13.5-17.5); IMMATURE GRANULOCYTES 0.5 % (0-5); LYMPHOCYTES 29.2 % (15-50); MCH 27.1 pg (26.0-34.0); MCHC 31.7 g/dL (31.0-37.0); MCV 85.7 fL (80.0-100.0); MEAN PLATELET VOLUME 9.9 fL (7.4-10.4); MONOCYTES 8.9 % (2-11); NEUTROPHILS 58.4 % (40-80); PLATELET COUNT 135 10x3/uL (130-400); RBC 3.28 10x6/uL (4.20-6.10); WBC 6.4 10x3/uL (4.8-10.8)
[2017-11-02 05:44] LABS: ALBUMIN 2.1 g/dL (3.4-5.0); ALKALINE PHOSPHATASE 101 U/L (46-116); ALT (SGPT) 35 U/L (10-68); BILIRUBIN - TOTAL 0.61 mg/dL (0.2-1.3); CALC OSMOLALITY 289 mosm/kg (275-300); CALCIUM 7.4 mg/dL (8.5-10.1); CARBON DIOXIDE 25.7 mmol/L (21.0-32.0); CHLORIDE - SERUM 111 mmol/L (98-107); GLUCOSE 138 mg/dL (74-106); MAGNESIUM - SERUM 1.4 mg/dL (1.8-2.4); PHOSPHOROUS 2.4 mg/dL (2.5-4.9); POTASSIUM - SERUM 4.4 mmol/L (3.5-5.1); PROTEIN - SERUM 4.8 g/dL (6.4-8.2); SODIUM 144 mmol/L (136-145); UREA NITROGEN 16 mg/dL (7-18); eGFR NON AFRICAN AMERICAN 76 mL/min (90-120)
[2017-11-02 08:24] VITALS: BP 109/56
[2017-11-02 12:44] VITALS: BP 128/55
[2017-11-02 16:05] VITALS: BP 111/61
[2017-11-02 20:00] VITALS: BP 106/78
[2017-11-03] VITALS: BP 131/59
[2017-11-03 04:00] VITALS: BP 113/51
[2017-11-03 08:11] VITALS: BP 115/75
[2017-11-03 12:46] VITALS: BP 127/62
[2017-11-03 19:49] VITALS: BP 131/70
[2017-11-04 00:39] VITALS: BP 132/72
[2017-11-04 04:31] VITALS: BP 123/64
[2017-11-04 08:40] VITALS: BP 148/77
[2017-11-04 13:01] VITALS: BP 101/47
== END 2017-11-04 14:15 | DRG 871 ==
LOC: D.ER 20:29 → D.MS 23:01 → D.ICU 23:01 → D.EDHOLD 23:01 → D.MS 23:29 → D.ICU 10-28 00:07 → D.MS 10-31 17:29
PROVIDERS: Emergency Medicine; Family Medicine Adult Medicine; Internal Medicine Nephrology; Internal Medicine Pulmonary Disease
PROC: BD11ZZZ Fluoroscopy of Esophagus (ICD-10-PCS; principal; 2017-11-03)
DX: A41.9 Sepsis, unspecified organism (principal); R65.21 Severe sepsis with septic shock; N39.0 Urinary tract infection, site not specified; N17.9 Acute kidney failure, unspecified; I42.9 Cardiomyopathy, unspecified; I50.30 Unspecified diastolic (congestive) heart failure; D50.9 Iron deficiency anemia, unspecified; N18.9 Chronic kidney disease, unspecified; I34.0 Nonrheumatic mitral (valve) insufficiency; K59.00 Constipation, unspecified; E11.9 Type 2 diabetes mellitus without complications; K75.89 Other specified inflammatory liver diseases; R13.12 Dysphagia, oropharyngeal phase

== ENCOUNTER 2017-11-04 12:41 | Inpatient (IN) | payer MEDICARE, BC ==
[~2017-11-04] VITALS: Ht 175.3 cm; Wt 97.5 kg
--- NOTE | ~2017-11-04 | RHP ---
PATIENT: ESTHER RICHARDSON MEDICAL RECORD: [id number] ACCOUNT: [id number] LOCATION:[facility]1112 : 35 ADMISSION DATE: 11/04/17 REHABILITATION HISTORY AND PHYSICAL EXAMINATION POST ADMISSION PHYSICIAN EXAMINATION POST-ADMISSION PHYSICAL EXAMINATION AND HISTORY AND PHYSICAL DATE OF ADMISSION: 11/04/2017 ADMITTING DIAGNOSIS: Critical illness myopathy. 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 He was recently in the rehab unit. He completed the program, was discharged home with his . Shortly after returning home, he developed fever and chills and returned to the Emergency Room. He was found to be hypotensive with a systolic blood pressure in the 80s. He had acute renal failure with elevated creatinine of 2.6, leukocytosis with a white count of 22.8, and fever with a temperature of 102.9. He was admitted to the ICU with severe sepsis. He was given IV fluids, started on Levophed. He was started on cefepime and vancomycin to cover gram-negative rods as well as MRSA, supplemental O2 to keep sats greater than 92%, Tylenol for elevated temperature. He was in the ICU for 5 days, was transferred to the medical floor. His BP is stable. His creatinine is trending down to 1 and his white blood cell count was down to 6. He is afebrile after completing 5 doses of IV Levaquin, 6 doses of vancomycin and Maxipime, that we will continue for 21 doses. A bedside swallow eval shows concerns for pharyngeal dysphagia. A modified barium swallow was ordered and revealed oropharyngeal dysphagia and recommended speech therapy for followup for safety swallowing and dietary tolerance. He has prolonged immobility and progressive generalized weakness, especially in his lower extremities. He is very fatigued, limited range of motion. His proximal muscle strength is decreased. He is dmixxkqu-[id number] assist for ADLs, gmsfwukp-um-xfk assist for sit to stand and bed to chair. He has ambulated 15 feet with physical therapy with 40% assist using a rolling walker, gait belt, and O2 at 4 liters. He is on continuous O2, but tires very easily. He is motivated and wants to return back home and get back to his prior level of functioning hopefully. Comorbidities in this patient include systemic inflammatory response syndrome, septic shock, sepsis, lactic acidosis, ischemic hepatitis, UTI, microcytic anemia, dehydration, facial cellulitis, hyperkalemia, hypotension, fever, anemia, leukocytosis, fatigue, weakness, and debility. PAST MEDICAL HISTORY: Significant for neuropathy. He has got a history of allergies. He has got a history of diabetes, got a history of coronary artery disease, melanoma. PAST SURGICAL HISTORY: Includes coronary artery bypass grafting, corneal transplant. He has had enucleation. Coronary stent times 1. Left knee has been scoped. He has had pacemaker and defibrillator placed. ALLERGIES: No known drug allergies. CURRENT MEDICATIONS: Include a multivitamin daily, omega-3 two caps daily, Plavix 75 mg daily, Bumex 1 mg daily, aspirin 325 mg daily, Crestor 40 mg at bedtime, Nitrostat p.r.n., niacin ER 500 mg at bedtime, Zestril 10 mg b.i.d., HISTORY AND PHYSICAL [id number] ESTHER RICHARDSON Lantus 35 units at bedtime, Diabeta 5 mg b.i.d., and carvedilol 6.25 mg b.i.d. HABITS: No current alcohol or tobacco use. FAMILY HISTORY: Noncontributory. SOCIAL HISTORY: The patient hopes to return back home and get back to his prior level of functioning. REVIEW OF SYSTEMS: GENERAL: Does complain of weakness and fatigue. HEENT: Denies cold, cough, or congestion. CARDIOVASCULAR: Denies chest pain. PHYSICAL EXAMINATION: VITAL SIGNS: Stable, afebrile. GENERAL: An elderly gentleman, in no acute distress upon exam. HEENT: Normocephalic and atraumatic. Mucosa moist. NECK: Supple. No lymphadenopathy. LUNGS: Clear at this time. HEART: Regular rate and rhythm. He does have a holosystolic murmur. ABDOMEN: Benign. EXTREMITIES: No clubbing, cyanosis, or edema. NEUROLOGIC: He does have noted weakness. ASSESSMENT: This is an 82-year-old gentleman admitted to the rehab with a working diagnosis of critical illness myopathy. The patient has potential to make improvement. We will institute the following multidisciplinary therapies including, but not limited to physical, occupational, respiratory, speech, nutritional services, prosthetics and orthotics. Given his complex medical condition and risk for further medical complications, rehabilitation services cannot be provided at a low level of care such as a long-term facility. PLAN: 1. Admit to [facility] for intensive inpatient therapy to include the following disciplines: A. Physical therapy to improve gait, all transfer skills and bed mobility to a modified independent level. B. Occupational therapy to improve activities of daily living to a modified independent level. C. Case management to assist with discharge planning and placement options. D. Nutrition to assist with nutritional needs. E. Rehabilitation nursing to assist in monitoring the patient's underlying medical conditions and to assist with any type of bowel or bladder management. 2. The patient's current medications will be continued. 3. The patient will be placed on standard fall precautions. 4. The patient's estimated length of stay is approximately 7-10 days. 5. Discuss this patient during care team staff meeting this week. TRANSINT:[id number] Voice Confirmation ID: [id number] DOCUMENT ID: [id number] ROCAEL notes whether there has been none or any medical/functional change since admission: - No change since prescreen. HISTORY AND PHYSICAL [id number] ESTHER RICHARDSON attests patient continues to be appropriate for IRF: - Continues to be appropriate. HARLAN YATES MD at 0850 CC: [id number] DICTATION DATE: 11/05/1741 MANAGER NEW PRODUCT: 11/05/[address] [facility] [address] [place] [address]
--- NOTE | ~2017-11-04 | DS ---
PATIENT:ESTHER RICHARDSON :35 MEDICAL RECORD: [id number] DISCHARGE SUMMARY ADMISSION DATE: 11/04/17 DISCHARGE DATE: 11/10/17 This is a discharge dated 11/10/2017 from an inpatient rehab. 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 SECONDARY DIAGNOSES: 1. UTI. 2. Diabetes. 3. Hypertension. 4. Hyperlipidemia. 5. Neuropathy. 6. Dysphagia. 7. Coronary artery disease. 8. Anemia. HOSPITAL COURSE: Full H&P is located elsewhere on the chart on this 82-year-old male who was admitted to inpatient rehab for physical therapy and occupational therapy to improve gait, transfer skills, bed mobility, and activities of daily living to modified independent level. He was evaluated by PT and OT and their plans of care were followed. He required group home care for observation, assessment, and medication administration. He was seen by speech therapy for management of dysphagia. Fingerstick blood sugars were monitored throughout his hospital stay with appropriate adjustment in medications as needed. He was continued on appropriate home medications. He was cooperative with therapies, progressing towards goals. Case management was involved for discharge planning. He was considered stable for discharge on 11/10/2016. DISCHARGE MEDICATIONS: As per discharge medication reconciliation. DISCHARGE DISPOSITION: The patient is discharged home. He will continue his current diet and level of activity. He will follow up with primary care in one week and specialist as directed. He will have home health for continued PT and OT. At least 30 minutes was spent in this discharge activity. TRANSINT:[id number] Voice Confirmation ID: [id number] DOCUMENT ID: [id number] Dictated By: JOSE GRIMM I have interviewed/examined the above patient and agree with these documented findings. DISCHARGE SUMMARY REPORT [id number] ESTHER RICHARDSON SCOTT MD at 1355 at 1349 CC: [id number] DICTATION DATE: 11/27/17 1455 AUTOMATED TELLER MANAGER: 11/27/17 1521 DIS IN 11/10/17 [facility] [address] [place] [address]
[2017-11-04 14:30] VITALS: BP 150/73
[2017-11-04 14:44] VITALS: BP 150/73; BMI 31.8
[2017-11-04 21:50] VITALS: BP 150/73
[2017-11-05 07:11] VITALS: BP 116/49
[2017-11-05 14:18] VITALS: Ht 175.3 cm; Wt 97.5 kg
[2017-11-05 19:39] VITALS: BP 134/62
[2017-11-06 08:00] VITALS: BP 129/56
[2017-11-06 19:35] VITALS: BP 108/52
[2017-11-07 05:59] LABS: BASOPHILS 0.3 % (0-2); EOSINOPHILS 4.2 % (0-7); HEMATOCRIT 29.1 % (42.0-54.0); HEMOGLOBIN 9.3 g/dL (13.5-17.5); IMMATURE GRANULOCYTES 0.6 % (0-5); LYMPHOCYTES 32.5 % (15-50); MCH 27.6 pg (26.0-34.0); MCV 86.4 fL (80.0-100.0); MEAN PLATELET VOLUME 9.9 fL (7.4-10.4); MONOCYTES 11.7 % (2-11); NEUTROPHILS 50.7 % (40-80); RBC 3.37 10x6/uL (4.20-6.10); WBC 6.7 10x3/uL (4.8-10.8)
[2017-11-07 06:00] LABS: PLATELET COUNT 172 10x3/uL (130-400)
[2017-11-07 06:08] LABS: ANION GAP 12.3 mmol/L (8-16); CALCIUM 8.5 mg/dL (8.5-10.1); CARBON DIOXIDE 25.6 mmol/L (21.0-32.0); CREATININE - SERUM 1.1 mg/dL (0.6-1.3); POTASSIUM - SERUM 3.9 mmol/L (3.5-5.1)
[2017-11-07 08:26] VITALS: BP 141/70
[2017-11-07 20:01] VITALS: BP 121/52
[2017-11-08 08:04] VITALS: BP 116/63
[2017-11-08 20:00] VITALS: BP 102/50
[2017-11-09 06:45] LABS: BASOPHILS 0.5 % (0-2); EOSINOPHILS 6.7 % (0-7); HEMATOCRIT 29.7 % (42.0-54.0); HEMOGLOBIN 9.5 g/dL (13.5-17.5); IMMATURE GRANULOCYTES 0.3 % (0-5); LYMPHOCYTES 38.3 % (15-50); MCH 27.9 pg (26.0-34.0); MCV 87.4 fL (80.0-100.0); NEUTROPHILS 43.2 % (40-80); RDW 15.1 % (11.5-14.5); WBC 6.1 10x3/uL (4.8-10.8)
[2017-11-09 06:46] LABS: ANION GAP 10.4 mmol/L (8-16); CALCIUM 8.2 mg/dL (8.5-10.1); CARBON DIOXIDE 27.7 mmol/L (21.0-32.0); CREATININE - SERUM 1.2 mg/dL (0.6-1.3); POTASSIUM - SERUM 4.1 mmol/L (3.5-5.1)
[2017-11-09 06:50] LABS: PLATELET COUNT 208 10x3/uL (130-400)
[2017-11-09 11:13] VITALS: BP 127/63
[2017-11-09 16:42] VITALS: BP 119/58
[2017-11-09 20:18] VITALS: BP 117/61
[2017-11-10 08:00] VITALS: BP 114/54
== END 2017-11-10 11:29 | disposition home health service (06) | DRG 91 ==
LOC: D.REHAB 12:41
PROVIDERS: Emergency Medicine
DX: G72.81 Critical illness myopathy (principal); A41.9 Sepsis, unspecified organism; R65.21 Severe sepsis with septic shock; E87.2 Acidosis; N39.0 Urinary tract infection, site not specified; L03.211 Cellulitis of face; D50.9 Iron deficiency anemia, unspecified; E86.0 Dehydration; E87.5 Hyperkalemia; I95.9 Hypotension, unspecified; D72.829 Elevated white blood cell count, unspecified; R53.83 Other fatigue; R53.1 Weakness; R53.81 Other malaise; E11.40 Type 2 diabetes mellitus with diabetic neuropathy, unspecified; R13.12 Dysphagia, oropharyngeal phase

== ENCOUNTER → 2017-12-14 09:05 | Outpatient (CLI) | payer MEDICARE, BC ==
[2017-11-05 14:18] VITALS: BMI 31.7
--- NOTE | ~2017-12-14 | EC ---
PATIENT:ESTHER DALE DATE OF SERVICE: 12/14/17 SEX: M MEDICAL RECORD: [id number] DATE OF : 35 LOCATION:D.[facility] AGE OF PATIENT: 82 ADMISSION DATE: 12/14/17 REFERRING PHYSICIAN: INTERPRETING PHYSICIAN: EMILY CALLES MD ECHOCARDIOGRAM REPORT ECHO CHARGES 4 ECHO COMPLETE Date: 12/14 CLINICAL DIAGNOSIS: CAD/CHF/CARDIOMYOPATHY ECHOCARDIOGRAPHIC MEASUREMENTS (adult normal given) AC root (d.<3.7cm) 3.3 cm LV Septum d (<1.2 cm> 1.1 cm Valve Excursion 2.0 cm LV Septum (systole) 1.5 cm Left Atria (s.<4.0cm> 3.9 cm LVPW d(<1.2cm) 1.1 cm RV (d.<2.3cm) 2.7 cm LVPW (sytole) 1.5 cm LV diastole(<5.6CM) 4.9 cm MV E-F(>70mm/sec) cm LV systole 3.7 cm LVOT Diameter 2.1 cm MV exc.(>10mm) cm Est.ejection fraction (50-75%) % DOPPLER: LVIT cm/sec A 121 cm/sec E 75.0 cm/sec LA cm/sec RVSP 38.2 mmHg LVOT 75.0 cm/sec AOP1/2T m/s Asc. Ao 103 cm/sec RVOT 59.0 cm/sec RA cm/sec PA 80.0 cm/sec AV Gradient Peak 4.3 mmHg AV Mean 2.2 mmHg AV Area 2.4 cm MV Gradient Peak 7.1 mmHg MV Mean 2.6 mmHg MV Area cm COMMENTS: Relief Man: Richard RODGERSOE Chief Information Security Officer: 4 Dr. Calles TAPE# PACS Pericardial Effusion N DATE OF SERVICE: Esther [place] with a history of cardiomyopathy. PROCEDURE: Transthoracic echocardiogram. FINDINGS: 1. Left ventricle shows mild anterior septal hypokinesis. Inflow characteristics show diastolic dysfunction and the patient has evidence of mild left ventricular hypertrophy. The overall ejection fraction is moderately ECHOCARDIOGRAM REPORT [id number] ESTHER DALE reduced between 40% to 45%. 2. The left atrium is normal size, normal function. 3. The aortic valve is thickened and mildly sclerotic, but otherwise normal functioning. 4. The mitral valve is structurally normal. 5. The tricuspid valve is structurally and functionally normal. 6. The pericardium is normal. 7. The right atrium is normal. 8. The right ventricle is normal. CONCLUSIONS: This is a normal echocardiogram for the patient's age with the exception of a mild reduction in ejection fraction that appears to be indicative of ischemic heart disease. TRANSINT:[id number] Voice Confirmation ID: [id number] DOCUMENT ID: [id number] EMILY CALLES MD at 0819 CC: [id number] DICTATION DATE: 12/15/17 08 ARC CUTTER PLASMA ARC: 12/15/17 1426 DEP CLI 12/14/17 [facility] [address] [place] [address]
== END | disposition home or self-care (01) ==
LOC: D.ECHO 09:05
DX: I25.10 Atherosclerotic heart disease of native coronary artery without angina pectoris (principal); I42.9 Cardiomyopathy, unspecified; I50.9 Heart failure, unspecified

== ENCOUNTER → 2017-12-28 10:43 | Outpatient (CLI) | payer MEDICARE, BC ==
[2017-11-05 14:18] VITALS: BMI 31.7
[2017-12-28 12:01] LABS: ALT (SGPT) 23 U/L (10-68); CREATINE KINASE 54 UL (21-232)
== END | disposition home or self-care (01) ==
LOC: D.LABREF 10:43
PROVIDERS: Internal Medicine Cardiovascular Disease
DX: I25.10 Atherosclerotic heart disease of native coronary artery without angina pectoris (principal); I42.9 Cardiomyopathy, unspecified

== ENCOUNTER → 2018-01-10 09:01 | Outpatient (CLI) | payer MEDICARE, BC ==
[2017-11-05 14:18] VITALS: BMI 31.7
--- NOTE | ~2018-01-10 | EC ---
PATIENT:ESTHER RICHARDSON DATE OF SERVICE: 01/10/18 SEX: M MEDICAL RECORD: [id number] DATE OF : 35 [facility] AGE OF PATIENT: 82 ADMISSION DATE: 01/10/18 REFERRING PHYSICIAN: INTERPRETING PHYSICIAN: EMILY CALLES MD ECHOCARDIOGRAM REPORT ECHO CHARGES 4 ECHO COMPLETE Date: 01/10 CLINICAL DIAGNOSIS: CAD/CARDIOMYOPATHY,PALPS ECHOCARDIOGRAPHIC MEASUREMENTS (adult normal given) AC root (d.<3.7cm) 4.1 cm LV Septum d (<1.2 cm> 1.5 cm Valve Excursion 2.0 cm LV Septum (systole) 1.6 cm Left Atria (s.<4.0cm> 3.7 cm LVPW d(<1.2cm) 1.5 cm RV (d.<2.3cm) 2.9 cm LVPW (sytole) 1.6 cm LV diastole(<5.6CM) 5.0 cm MV E-F(>70mm/sec) cm LV systole 3.4 cm LVOT Diameter 1.8 cm MV exc.(>10mm) 1.2 cm Est.ejection fraction (50-75%) % DOPPLER: LVIT cm/sec A 103 cm/sec E 59.0 cm/sec LA cm/sec RVSP 26 mmHg LVOT 82 cm/sec AOP1/2T m/s Asc. Ao 105 cm/sec RVOT 70 cm/sec RA cm/sec PA 117 cm/sec AV Gradient Peak 4.42 mmHg AV Mean 2.67 mmHg AV Area 2.3 cm MV Gradient Peak 5.36 mmHg MV Mean 1.96 mmHg MV Area cm COMMENTS: Pharmacy Technician Assistant: Bo DONIS Custodial Worker: Aparna Calles TAPE# PACS Pericardial Effusion N DATE OF SERVICE: PROCEDURE: Transthoracic echocardiogram. FINDINGS: 1. Left ventricle shows preserved LV systolic function. There is left ventricular hypertrophy. Inflow characteristics are normal. 2. The right ventricle is mildly dilated. 3. The left atrium is normal size and function. 4. The aortic valve is sclerotic with trace aortic insufficiency with no ECHOCARDIOGRAM REPORT [id number] ESTHER RICHARDSON evidence of stenosis. 5. The mitral valve is normal. 6. The tricuspid valve is normal. 7. The pericardium is normal. CONCLUSION: This is a normal echocardiogram for the patient stated age with the exception of evidence of mild hypertensive heart disease. TRANSINT:[id number] Voice Confirmation ID: [id number] DOCUMENT ID: [id number] EMILY CALLES MD at 1029 CC: [id number] DICTATION DATE: 01/11/18817 QUARRY SUPERVISOR OPEN PIT: 01/11/18 1226 DEP CLI 01/10/18 [place] [id number] [place] [id number]
== END | disposition home or self-care (01) ==
LOC: D.ECHO 09:01
DX: I25.10 Atherosclerotic heart disease of native coronary artery without angina pectoris (principal); I42.9 Cardiomyopathy, unspecified; R00.2 Palpitations

== ENCOUNTER → 2018-04-24 07:02 | Outpatient (CLI) | payer MEDICARE, BC ==
[2017-11-05 14:18] VITALS: BMI 31.7
== END | disposition home or self-care (01) ==
LOC: D.CT 07:02
DX: R09.81 Nasal congestion (principal)

== ENCOUNTER → 2018-08-31 11:08 | Outpatient (CLI) | payer MEDICARE, BC ==
[2017-11-05 14:18] VITALS: BMI 31.7
== END | disposition home or self-care (01) ==
LOC: D.CT 11:08
DX: R42 Dizziness and giddiness (principal)

== ENCOUNTER → 2021-01-19 11:22 | Outpatient (CLI) | payer MEDICARE, BC ==
[2017-11-05 14:18] VITALS: BMI 31.7
--- NOTE | 2021-01-20 14:32 | EC ---
PATIENT:ESTHER RICHARDSON DATE OF SERVICE: 01/19/21 SEX: M MEDICAL RECORD: [id number] DATE OF : 35 LOCATION:D.[facility] AGE OF PATIENT: 85 ADMISSION DATE: 01/19/21 REFERRING PHYSICIAN: INTERPRETING PHYSICIAN: AWA STEVEN MD ECHOCARDIOGRAM REPORT ECHO CHARGES 4 ECHO COMPLETE Date: 01/19/21 CLINICAL DIAGNOSIS: CAD/CARDIOMYOPATHY, ASSESS EF HX OF CABG/AND PACEMAKER ECHOCARDIOGRAPHIC MEASUREMENTS (adult normal given) AC root (d.<3.7cm) 3.8 cm LV Septum d (<1.2 cm> 1.2 cm Valve Excursion 1.8 cm LV Septum (systole) 1.3 cm Left Atria (s.<4.0cm> 3.8 cm LVPW d(<1.2cm) 1.1 cm RV (d.<2.3cm) 3.8 cm LVPW (sytole) 1.3 cm LV diastole(<5.6CM) 5.9 cm MV E-F(>70mm/sec) cm LV systole 5.0 cm LVOT Diameter 1.9 cm MV exc.(>10mm) 1.2 cm Est.ejection fraction (50-75%) % DOPPLER: LVIT cm/sec A 105.0cm/sec E 58.0 cm/sec LA cm/sec RVSP 30 mmHg LVOT 72 cm/sec AOP1/2T m/s Asc. Ao 101 cm/sec RVOT 48 cm/sec RA cm/sec PA 90 cm/sec AV Gradient Peak 4.11 mmHg AV Mean 2.15 mmHg AV Area 2.2 cm MV Gradient Peak 5.84 mmHg MV Mean 1.80 mmHg MV Area cm COMMENTS: Commercial Front Load Operator: 2 JAXON DONIS Firer Automatic Stoker: 3 Dr. Chau TAPE# PACS Pericardial Effusion N DATE OF SERVICE: Adequate 2D, color flow imaging, spectral Doppler, and M-Mode. FINDINGS: No LVH. LV internal dimensions are upper limits normal 5.9 cm. Mild left ventricular hypokinesis, more acceptable hypokinesis secondary to underlying paced rhythm. Overall, LV function appears to be mildly reduced at 40% to 45%. Aortic valve is sclerosed without stenosis by Doppler interrogation. Left atrium is normal 3.8 cm. Mitral valve shows no prolapse. Mild MR. Right side is grossly normal. Mild TR. ECHOCARDIOGRAM REPORT [id number] ESTHER RICHARDSON TRANSINT:[id number] Voice Confirmation ID: [id number] DOCUMENT ID: [id number] AWA STEVEN MD at 1432 CC: [id number] DICTATION DATE: 01/19/21 163 MAINTENANCE WORKER: 01/19/21 2250 DEP CLI 01/19/21 [place] [id number] [place] [id number]
== END | disposition home or self-care (01) ==
LOC: D.HCCECHO 01-08 11:00
PROVIDERS: ATTEND Internal Medicine Interventional Cardiology
DX: I25.10 Atherosclerotic heart disease of native coronary artery without angina pectoris (principal)